=== PATIENT | male | born 1955 | race Two or more races ===

== ENCOUNTER 2024-09-26 07:22 | Emergency (ER) | payer MEDICARE, MEDICAID, SELFPAY ==
[2024-09-26 08:08] VITALS: BP 149/73; PULSE 81; RESP 16; TEMP 36.4; O2SAT 97
--- NOTE | 2024-09-26 08:18 | XR_ITS ---
Examination: CT cervical spine without contrast 2-D sagittal reconstructions 2-D coronal reconstructions 3-D reconstructions. Exam date and time:September 26, 2024 at 0911 hrs. Comparison October 24, 2021 Indications: Onset neck pain beginning one week ago no trauma CTDI:vol (mGy) 14.1 DLP: (mGycm) 305 Technique: Multiple 2 mm axial sections of the cervical spine have been obtained. The coronal and sagittal reconstructions have been obtained. 3-D reconstructions have been obtained. Low dose protocols were performed. One or more of the following dose reduction techniques were used; automated exposure control, adjustment of the mA and/or KV according to patient size, use of iterative reconstruction technique. Findings: Axial sections demonstrate intact base of the skull. C1 exhibit satisfactory relationship to the odontoid. No acute cervical vertebral body fracture seen. Alignment posterior spinous processes satisfactory. Grade 1 listhesis C3 on C4, C4 on C5 Moderate to advanced degenerative disc disease C3-C4, C4-C5, C5-C6, C6-C7 C3-C4 moderate right neural foraminal stenosis C5-C6 moderate left neural foraminal stenosis C6-C7 moderate left neural foraminal stenosis Impression: No acute cervical fracture. Cervical spinal stenosis as above Repeat MRI cervical spine follow-up would best assess full extent of acquired soft tissue spinal stenosis
--- NOTE | 2024-09-26 08:19 | EDNOTE_ITS ---
ED Neck Injury Pain RME/HPI General Chief Complaint: Neck Pain/Injury Stated Complaint: PAIN IN THE BACK OF THE NECK Time Seen by Provider: 09/26/24 08:18 Source: patient Arrival date/time: 09/26/24 07:22 69-year-old male with past medical history of hypertension, diabetes, CAD, and chronic neck pain presents emergency department complaining of neck pain that radiates down to both shoulders. Patient reports pain has been worse than normal for the last week and primary care provider if gabapentin and started him on methocarbamol. Patient denies any fever, chills, cough, shortness of breath, dizziness, numbness, extremity weakness, or any paresthesia. Mode of arrival: ambulatory Limitations: no limitations Related Data Home Medications ?Medication ?Instructions ?Recorded ?Confirmed lisinopril 40 mg tablet 40 mg PO QDAY #0 tabs 06/06/17 09/14/22 loratadine 10 mg tablet (Claritin) 10 mg PO QDAY #0 tabs 06/06/17 09/14/22 doxazosin 4 mg tablet 4 mg PO HS 12/27/20 09/14/22 pantoprazole 40 mg tablet,delayed 40 mg PO QDAY 12/27/20 09/14/22 release albuterol sulfate 90 mcg/actuation 1 puff inhalation DAILY PRN Dyspnea 10/25/21 09/14/22 aerosol inhaler atorvastatin 80 mg tablet 80 mg PO QDAY 10/25/21 09/14/22 diclofenac sodium 1 % topical gel 1 g topical BID 10/25/21 09/14/22 linagliptin 5 mg tablet (Tradjenta) 5 mg PO DAILY 10/25/21 09/14/22 magnesium oxide 250 mg PO BID 10/25/21 09/14/22 ticagrelor 90 mg tablet (Brilinta) 90 mg PO BID 10/25/21 09/14/22 aspirin 81 mg capsule 81 mg PO QDAY 09/14/22 09/14/22 chlorthalidone 25 mg tablet 25 mg PO QDAY 09/14/22 09/14/22 cholecalciferol (vitamin D3) 50 50 mcg PO QDAY 09/14/22 09/14/22 mcg (2,000 unit) tablet (Vitamin D3) empagliflozin 10 mg tablet 10 mg PO QAM 11/18/22 11/18/22 (Jardiance) gabapentin 100 mg capsule 100 mg PO TID 09/14/22 09/14/22 (Neurontin) Previous Rx's ?Medication ?Instructions ?Recorded amlodipine 10 mg tablet 5 mg (1/2 x 10 mg) PO QDAY #0 tabs 10/25/21 acetaminophen 300 mg-codeine 30 mg 1 tab PO Q6H PRN pain #28 tabs 09/17/22 tablet lidocaine 5 % topical patch 1 patch topical QDAY PRN pain #15 09/26/24 ea Allergies Allergy/AdvReac Type Severity Reaction Status Date / Time No Known Allergies Allergy Verified 09/26/24 07:23 Review of Systems Review of Systems Systems Reviewed: All systems reviewed, normal except as documented Constitutional Constitutional: Reports system reviewed and no additional complaints, except as documented, Denies body ache(s), Denies chills and Denies fever(s) Eyes Eyes: Reports system reviewed and no additional complaints, except as documented and Denies change in vision ENT Ears, Nose, Mouth, and Throat: Reports system reviewed and no additional complaints, except as documented, Denies disequilibrium, Denies dizziness, Reports neck pain, Denies sore throat and Denies vertigo Cardiovascular Cardiovascular: Reports system reviewed and no additional complaints, except as documented, Denies chest pain and Denies dyspnea Respiratory Respiratory: Reports system reviewed and no additional complaints, except as documented, Denies chest congestion, Denies cough and Denies dyspnea Gastrointestinal Gastrointestinal: Reports system reviewed and no additional complaints, except as documented, Denies abdominal pain, Denies nausea and Denies vomiting Musculoskeletal Musculoskeletal: Reports system reviewed and no additional complaints, except as documented, Denies abnormal gait, Denies arthralgias and Reports neck pain Integumentary/Breasts Skin/Breast: Reports system reviewed and no additional complaints, except as documented, Denies erythema, Denies rash and Denies wounds Neurologic Neurologic: Reports system reviewed and no additional complaints, except as documented, Denies abnormal gait, Denies disequilibrium, Denies dizziness and Denies vertigo Past Medical History Past Medical History NEUROLOGIC: Negative Neurological Disorders, Cerebrovascular Accident, Transient Ischemic Attacks (TIA), Dementia, Alzheimer's Disease, Parkinson's Disease, Brain Tumor, Meningitis, Seizures, Epilepsy, Multiple Sclerosis, Cerebral Palsy, Amyotrophic Lateral Sclerosis (ALS/Lili Gehrig's), Guillain-[place] Syndrome, Spina Bifida, Paralysis, Peripheral Neuropathy, Wong's Palsy, Subdural Hematoma, Migraine, Head Trauma, Spinal Cord Injury or Traumatic Brain Injury CARDIAC: Positive Hypercholesterolemia and Hypertension; Negative Cardiac Disorders, Myocardial Infarction, Cardiac Arrhythmia, Atrial Fibrillation, Angina, Heart Murmur, Coronary Artery Disease, Atherosclerotic Heart Disease, Peripheral Vascular Disease, Aneurysm, Congestive Heart Failure, Congenital Heart Disease, Valvular Heart Disease, Rheumatic Fever, Cardiomyopathy, Edema, Pericarditis, Cellulitis, Deep Vein Thrombosis, Hypotension or Varicose Veins RESPIRATORY: Negative Chronic Obstructive Pulmonary Disease (COPD), Asthma, Bronchitis, Emphysema, Pneumonia, Pulmonary Fibrosis, Cystic Fibrosis, Tuberculosis, Pulmonary Embolism, Pulmonary Edema or Sleep Apnea GASTROINTESTINAL: Positive Gastrointestinal Disorders and Obesity; Negative Cirrhosis, Pancreatitis, Celiac Disease, Gall Bladder Disease, Gastrointestinal Bleed, Esophageal Varices, Cruz's Esophagus, Colitis, Ulcerative Colitis, Diverticulitis, Diverticulosis, Ulcer, Irritable Bowel, Crohn's Disease, Obstructive Bowel, Hiatal Hernia, Hemorrhoids or Gastroesophageal Reflux Disease GENITOURINARY: Positive Renal Disease; Negative Genitourinary Disorders, Kidney Stones, Polycystic Kidney Disease, Neur ogenic Bladder, Inguinal Hernia, Dialysis or Benign Prostatic Hyperplasia REPRODUCTIVE: Negative Genital Herpes, Gonorrhea, Syphilis or Testicular Cancer MUSCULOSKELETAL: Positive Arthritis; Negative Musculoskeletal Disorders, Muscular Dystrophy, Myasthenia Gravis, Marfan's Syndrome, Rheumatoid Arthritis, Osteoporosis, Degenerative Disk Disease, Gout, Scoliosis, Carpal Tunnel Syndrome, Fibromyalgia, Fractures, Degenerative Joint Disease, Osteomyelitis or Poliovirus ENT: Positive Blind (left eye blind); Negative Cataracts, Glaucoma, Retinal Detachment, Macular Degeneration, Ear Infection, Deafness, Head Trauma or Eye Prosthesis ENDOCRINE: Positive Endocrine Disorders and Diabetes Mellitus Type 2; Negative Diabetes Mellitus Type 1, Hypoglycemia, Paco's Syndrome, [place]'s Disease, Hyperthyroidism, Hypothyroidism, Parathyroid Disease, Pituitary Disease, Systemic Lupus Erythematosus, Syndrome of Inappropriate Antidiuretic Hormone (SIADH), Adrenal Disease or Graves' Disease HEMATOLOGIC: Negative Blood Disorders, Anemia, Leukemia, Hemophilia, Sickle Cell Disease or Clotting Problems PSYCHO/SOCIAL: Negative Psychiatric Problems, Schizophrenia, Recreational Drug Use, Bipolar Disorder, Depression, Anxiety, Behavior Problems, Self-Mutilation, Attention Deficit Disorder, Attention Deficit Hyperactivity Disorder, Depression, Post Traumatic Stress Disorder or Eating Disorder OTHER HISTORY: Positive Hospitalization; Negative Autoimmune Disease, Down Syndrome, Autism, Developmental Delay, Shingles, Falls, Blood Transfusions, Blood Transfusion Reaction, Anesthesia Reactions, Organ Transplant, MRSA, VRSA, Clostridium Difficile, Cancer or Testicular Cancer Family History FAMILY HISTORY: Negative Family Psychiatric Problems, Family Respiratory Di sorders, Family Cardiac Disorders, Family Gastrointestinal Problems, Family Cancer, Family Surgery or Family Anesthesia Reaction (n/a) Surgical History SURGICAL: Positive Cardiac Catheterization (2 coronary stents); Negative Cardiac Surgery, Open Heart Surgery, Coronary Artery Bypass Graft, Valve Replacement, Vascular Surgery, Coronary Stent, Pacemaker, Angiogram, Auto Implanted Cardiovert Defib, Carotid Endarterectomy, Endocrine Surgery, Thyroidectomy, Ear Surgery, Tympanostomy Tube, Eye Surgery, Nose Surgery, Oral Surgery, Tonsillectomy, Adenoidectomy, Cochlear Implant, Corneal Transplant, Throat Surgery, Abdominal Surgery, Tracheostomy, Gastric Bypass Surgery, Gastrostomy, Bowel Surgery, Nephrectomy, Transurethral Resection, Joint Replacement, Amputation, Open Reduction Internal Fixation, Arthroscopy, Neurologic Surgery, Brain Shunt, Vasectomy or Organ Transplant Social History SMOKING STATUS: Never smoker SUBSTANCE USE: does not use ED Exam General Limitations: Present no limitations General appearance: Present alert and in no apparent distress Head Head exam: Present atraumatic Eye Eye exam: Present normal appearance, PERRL and EOMI ENT ENT exam: Present normal exam, normal oropharynx and mucous membranes moist Neck Neck exam: Present normal inspection, full ROM, trachea midline and other (Supple); Absent lymphadenopathy Chest Chest inspection: Present normal inspection and symmetric chest wall rise Respiratory Respiratory exam: Present normal lung sounds bilaterally Cardiovascular Cardiovascular exam: Present regular rate, normal rhythm and normal heart sounds Abdominal Exam Abdominal exam: Present soft and normal bowel sounds Extremities Exam Extremities exam: Present normal inspection and full ROM Back Exam Back exam: Present normal inspection and full ROM Neurological Exam Neurological exam: Present alert, oriented X3 and CN II-XII intact Psychiatric Psychiatric exam: Present normal affect and normal mood Skin Skin exam: Present warm, dry, intact and normal color Course Quality Measures none Orders Category Date Time Status CT cervical spine wo con Stat Exams 09/26/24 08:18 Completed CYCLObenzaPRINE [Flexeril] Med 09/26/24 08:19 Discontinued 5 mg PO X1 ONE Lidocaine 5% Patch Med 09/26/24 08:19 Discontinued 1 patch TOP X1 ONE Vital Signs Vital signs: Vital Signs Temperature 97.6 F 09/26/24 08:08 Pulse Rate 81 09/26/24 08:08 Respiratory Rate 16 09/26/24 08:08 Blood Pressure 149/73 H 09/26/24 08:08 Pulse Oximetry (%) 97 09/26/24 08:08 Oxygen Delivery Method Room Air 09/26/24 08:08 97% room air within normal limits Neck Pain MDM Narrative MDM Narrative:: 69-year-old male with past medical history of hypertension, diabetes, CAD, and chronic neck pain presents emergency department complaining of neck pain that radiates down to both shoulders. Patient reports pain has been worse than normal for the last week and primary care provider if gabapentin and started him on methocarbamol. Patient denies any fever, chills, cough, shortness of breath, dizziness, numbness, extremity weakness, or any paresthesia. Patient GCS 15 with steady gait and full active range of motion to neck. Patient appears nontoxic and hemodynamically stable. Patient reported improvement in pain after medication. CT cervical spine findings spinal stenosis. Patient discharged and instructed to follow-up with primary care provider and request referral physical therapy if symptoms persist. Instructed to return to emergency department for any worsening symptoms or as needed. Patient data External records reviewed:: [facility] previous records Clinical information provided by:: patient Social determinants that could affect healthcare access:: none Patient has the following chronic illnesses:: See chart How is presenting disease/condition affected by chronic disease/condition?: exacerbated by Evaluation data The following diagnostics were reviewed and interpreted by me:: radiology exam(s) Lab and/or radiology exams considered but not ordered:: Ordered Interpretation Summary: Interpreted by me Medications / Prescriptions Medications or Prescriptions considered but not ordered:: Ordered Medication administrations:: Medication Administration History Discontinued Medications Cyclobenzaprine HCl (Cyclobenzaprine 5 Mg Tablet) 5 mg PO X1 ONE Stop: 09/26/24 08:20 Last Admin: 09/26/24 08:53 Dose: Not Given Documented By: EF Non-Admin Reason: Cancelled by Provider Lidocaine (Lidocaine 5% 1 Patch) 1 patch TOP X1 ONE Stop: 09/26/24 08:20 Last Admin: 09/26/24 08:32 Dose: 1 patch Documented By: EF Given Consultations Consultation(s) initiated? (list below): No Diagnosis Neck Differential Diagnosis: disc disorder of cervical region, closed subluxation of cervical spine, fracture of cervical spine without lesion of spinal cord, cervical radiculopathy, vertebral artery dissection, torticollis, cervical spondylosis and strain of neck muscle Most likely diagnosis given after review of the tests above:: Neck and shoulder pain Spinal stenosis Admission Indicated Admission indicated?: not indicated Admission Request Was there a request for admission?: No Disposition Plan Disposition Plan: Discharge Discharge Attestation Discharge Attestation: The patient and all family members were given an opportunity to ask questions and understood the discharge instructions. Discharge instructions specifically effects, indications for sooner follow up or return to the emergency department, and the expected course of current diagnosis. Patient condition: Stable Discharge Plan Plan Patient Disposition: HOME (Self Care) Disposition Comment: Stable Prescriptions/Referrals Prescriptions/Med Rec: New lidocaine 5 % adhesive patch,medicated 1 patch topical QDAY PRN (Reason: pain) Qty: 15 0RF Rx Instructions: leave on most painful area for up to 12 hrs No Action lisinopril 40 MG tablet 40 mg PO QDAY Qty: 0 loratadine [Claritin] 10 MG tablet 10 mg PO QDAY Qty: 0 magnesium oxide 250 mg magnesium Tablet 250 mg PO BID Tradjenta 5 mg Tablet 5 mg PO DAILY Brilinta 90 mg Tablet 90 mg PO BID atorvastatin 80 mg tablet 80 mg PO QDAY albuterol sulfate 90 mcg/actuation HFA aerosol inhaler 1 puff INHALATION DAILY PRN (Reason: Dyspnea) diclofenac sodium 1 % gel 1 g TOPICAL BID amlodipine 10 mg tablet 5 mg PO QDAY Qty: 0 0RF pantoprazole 40 mg Tablet,Delayed Release (Dr/Ec) 40 mg PO QDAY doxazosin 4 mg tablet 4 mg PO HS Hold Instructions: f/u with PCP chlorthalidone 25 mg Tablet 25 mg PO QDAY aspirin 81 mg Capsule 81 mg PO QDAY gabapentin [Neurontin] 100 mg Capsule 100 mg PO TID cholecalciferol (vitamin D3) [Vitamin D3] 50 mcg (2,000 unit) Tablet 50 mcg PO QDAY Jardiance 10 mg Tablet 10 mg PO QAM acetaminophen-codeine 300-30 mg tablet 1 tab PO Q6H PRN (Reason: pain) Qty: 28 0RF Referrals: Marcell Zamorano PA-C [Primary Care Provider] - In 1 week Problem List Clinical Impression: Neck and shoulder pain, Cervical spinal stenosis Patient/Caregiver Discharge Instructions Education Materials: Anatomy of a Normal Spine, Back Basics: A Healthy Spine, ED Neck Pain Additional Instructions: Apply medication as prescribed. Follow-up with primary care provider in 24 to 40 hours and request referral to physical therapy or MRI if symptoms persist. Return to the emergency department for any worsening symptoms or as needed. Print Language: Malay Stand Alone Forms: Toña Award Info., Patient Portal Info Letter PA/LINK TRAINER MAINTENANCE WORKER Supervising Physician PA/LINK TRAINER MAINTENANCE WORKER Supervising Physician: Dr. Murray
[2024-09-26] MEDS: LIDOCAINE 5% 1 PATCH TOP (08:32)
== END 2024-09-26 10:03 | disposition home or self-care (01) ==
PROVIDERS: Emergency Provider Emergency Medicine; PCP Physician Assistant Medical
DX: M48.02 Spinal stenosis, cervical region (principal); M25.512 Pain in left shoulder; M25.511 Pain in right shoulder; E11.9 Type 2 diabetes mellitus without complications; I10 Essential (primary) hypertension; I25.10 Atherosclerotic heart disease of native coronary artery without angina pectoris
CPT/HCPCS: 72125; 99284

== ENCOUNTER → 2024-10-26 | Outpatient (CLI) | payer MEDICARE, MEDICAID, SELFPAY ==
[2024-10-26 08:43] LABS: Basophils % (Auto) 0 % (0-2.5); Eosinophils # (Auto) 0.1 Thou/mm3 (0.0-0.5); Eosinophils % (Auto) 2 % (0-10); Hemoglobin 15.6 g/dL (13.5-16.0); Immature Granulocytes % (Auto) 0 % (0-0); Immature Granulocytes Auto 0.03 Thou/mm3 (0.00-0.00); Lymphocytes # (Auto) 1.2 Thou/mm3 (1.0-4.8); Lymphocytes % (Auto) 13 % (10-50); Mean Corpuscular HGB Conc 33.2 g/dl (31.0-37.0); Mean Corpuscular Hemoglobin 31.1 pg (25.0-35.0); Mean Corpuscular Volume 94 fL (80-100); Monocytes # (Auto) 0.6 Thou/mm3 (0.0-0.8); Monocytes % (Auto) 7 % (0-12); Neutrophils # (Auto) 6.8 Thou/mm3 (1.8-7.7); Neutrophils % (Auto) 78 % (37-80); Nucleated Red Blood Cell % 0 /100 WBC (0); Platelet Count 169 Thou/mm3 (140-440); RDW Standard Deviation 45.7 fL (35.1-43.9); Red Blood Count 5.02 Miln/mm3 (4.50-5.90); White Blood Count 8.8 Thou/mm3 (3.8-10.6)
[2024-10-26 08:48] LABS: Partial Thromboplastin Time 30.4 Seconds (22.0-36.0); Prothrombin Time 11.4 Seconds (9.0-12.2)
[2024-10-26 09:05] LABS: Anion Gap 7 (7-16); BUN/Creatinine Ratio 24 Ratio (12-20); Blood Urea Nitrogen 33 mg/dL (9-23); Calcium 10.4 mg/dL (8.3-10.6); Carbon Dioxide 26.9 mMol/L (20.0-31.0); Chloride 103 mMol/L (98-107); Creatinine (Component) 1.4 mg/dL (0.6-1.3); Glucose 149 mg/dL (74-106); Osmolality,Calculated 284 (275-295); Potassium 4.9 mMol/L (3.4-5.1); Sodium 137 mMol/L (136-145); eGFR 54 See Note
== END | disposition home or self-care (01) ==
LOC: COPL 07:53
PROVIDERS: Referring Provider Internal Medicine; Visit Provider Internal Medicine
DX: I25.10 Atherosclerotic heart disease of native coronary artery without angina pectoris (principal); I48.91 Unspecified atrial fibrillation
CPT/HCPCS: 36415; 80048; 85025; 85610; 85730

== ENCOUNTER → 2024-12-07 | Outpatient (CLI) | payer MEDICARE, MEDICAID, SELFPAY ==
[2024-12-07 09:45] LABS: Misc Send Out* See Sep Rpt
[2024-12-07 09:58] LABS: Collection Type, Urine Clean Catch; Squamous Epithelial Cell,Urine 0 /hpf (0-5); WBC,Urine 0 /hpf (0-5)
[2024-12-07 10:27] LABS: Basophils % (Auto) 0 % (0-2.5); Eosinophils # (Auto) 0.1 Thou/mm3 (0.0-0.5); Eosinophils % (Auto) 1 % (0-10); Hematocrit 46.1 % (41.0-53.0); Hemoglobin 15.7 g/dL (13.5-16.0); Immature Granulocytes % (Auto) 1 % (0-0); Immature Granulocytes Auto 0.04 Thou/mm3 (0.00-0.00); Immature Reticulocyte Fraction 12.1 % (2.3-13.4); Lymphocytes % (Auto) 12 % (10-50); Mean Corpuscular HGB Conc 34.1 g/dl (31.0-37.0); Mean Corpuscular Volume 91 fL (80-100); Monocytes # (Auto) 0.6 Thou/mm3 (0.0-0.8); Monocytes % (Auto) 7 % (0-12); Neutrophils # (Auto) 6.6 Thou/mm3 (1.8-7.7); Neutrophils % (Auto) 79 % (37-80); Nucleated Red Blood Cell % 0 /100 WBC (0); Platelet Count 178 Thou/mm3 (140-440); RDW Standard Deviation 45.7 fL (35.1-43.9); Red Blood Count 5.06 Miln/mm3 (4.50-5.90); Reticulocyte % (Auto) 1.5 % (0.5-1.5); Reticulocyte Absolute Auto 75.4 Biln/L (25.0-75.0); Reticulocyte Hgb Content 35.6 pg (28.0-35.0); White Blood Count 8.4 Thou/mm3 (3.8-10.6)
[2024-12-07 10:28] LABS: Parathyroid Hormone Intact 115.2 pg/ml (18.5-88.0)
[2024-12-07 10:29] LABS: Creatinine,Random Urine 108 mg/dL (30-125); Protein Total, Random Urine 11 mg/dL (1-14)
[2024-12-07 10:32] LABS: Alanine Aminotransferase 42 U/L (10-49); Albumin, Serum 4.5 gm/dL (3.4-4.8); Anion Gap 9 (7-16); Aspartate Amino Transferase 35 U/L (0-34); BUN/Creatinine Ratio 24 Ratio (12-20); Bilirubin,Total 0.6 mg/dL (0.3-1.2); Blood Urea Nitrogen 33 mg/dL (9-23); Calcium 9.2 mg/dL (8.3-10.6); Calcium (Corrected) 9.2 mg/dL (8.5-10.1); Carbon Dioxide 25.6 mMol/L (20.0-31.0); Chloride 97 mMol/L (98-107); Creatinine (Component) 1.4 mg/dL (0.6-1.3); Glucose 129 mg/dL (74-106); Magnesium 2.3 mg/dL (1.6-2.6); Osmolality,Calculated 273 (275-295); Phosphorous 3.5 mg/dL (2.4-5.1); Potassium 4.4 mMol/L (3.4-5.1); Sodium 132 mMol/L (136-145); Total Protein 7.2 gm/dL (5.7-8.2); Uric Acid 7.3 mg/dL (3.7-9.2); eGFR 54 See Note
[2024-12-07 10:40] LABS: Folate > 24.00 ng/mL (>5.38); Vitamin B12 764 pg/mL (211-911); Vitamin D 25 Hydroxy Total 46.3 ng/mL (7.3-40.2)
[2024-12-07 10:51] LABS: Ferritin 99 ng/mL (10.5-307.3); Iron 78 mcg/dL (65-175); Percent Iron Saturation 23 % (20-55); Total Iron Binding Capacity 328 mcg/dL (250-425); Unsaturated Iron Binding 250 (225-295)
[2024-12-07 11:00] LABS: Bilirubin,Urine Negative (Negative); Blood,Urine Negative (Negative); Clarity,Urine Clear (Clear/Hazy); Color,Urine Lt-Yellow (Lt Yel-Yel); Glucose, Urine 4+ (Negative); Ketones,Urine Negative (Negative); Leukocyte Esterase,Urine Negative (Negative); Nitrite,Urine Negative (Negative); Protein,Urine Negative (Neg - Trace); RBC,Urine 1 /hpf (0-3); Specific Gravity,Urine 1.026 (1.001-1.035); Urobilinogen,Urine Negative mg/dL (0.0-1.0)
== END | disposition home or self-care (01) ==
LOC: COPL 09:20
PROVIDERS: PCP Nurse Practitioner; Referring Provider Internal Medicine Nephrology; Visit Provider Internal Medicine Nephrology
DX: I12.9 Hypertensive chronic kidney disease with stage 1 through stage 4 chronic kidney disease, or unspecified chronic kidney disease (principal); E11.22 Type 2 diabetes mellitus with diabetic chronic kidney disease; N18.31 Chronic kidney disease, stage 3a; D63.1 Anemia in chronic kidney disease; E87.5 Hyperkalemia; E78.5 Hyperlipidemia, unspecified; M10.9 Gout, unspecified; N39.0 Urinary tract infection, site not specified; D50.9 Iron deficiency anemia, unspecified
CPT/HCPCS: 36415; 80069; 81001; 82247; 82306; 82570; 82607; 82728; 82746; 83540; 83550; 83735; 83970; 84155; 84156; 84450; 84460; 84550; 85025; 85046; 87086

== ENCOUNTER → 2025-03-15 | Outpatient (CLI) | payer MEDICARE, MEDICAID, SELFPAY ==
[2025-03-15 14:53] LABS: Misc Send Out* See Sep Rpt
[2025-03-15 15:27] LABS: Collection Type, Urine Clean Catch; Squamous Epithelial Cell,Urine 0 /hpf (0-5); WBC,Urine 0 /hpf (0-5)
[2025-03-15 15:47] LABS: Basophils % (Auto) 0 % (0-2.5); Eosinophils % (Auto) 1 % (0-10); Hematocrit 38.4 % (41.0-53.0); Hemoglobin 13.8 g/dL (13.5-16.0); Immature Granulocytes % (Auto) 0 % (0-0); Immature Granulocytes Auto 0.01 Thou/mm3 (0.00-0.00); Immature Reticulocyte Fraction 10.5 % (2.3-13.4); Lymphocytes # (Auto) 0.9 Thou/mm3 (1.0-4.8); Lymphocytes % (Auto) 13 % (10-50); Mean Corpuscular HGB Conc 35.9 g/dl (31.0-37.0); Mean Corpuscular Hemoglobin 31.8 pg (25.0-35.0); Mean Corpuscular Volume 89 fL (80-100); Monocytes # (Auto) 0.8 Thou/mm3 (0.0-0.8); Monocytes % (Auto) 12 % (0-12); Neutrophils # (Auto) 4.9 Thou/mm3 (1.8-7.7); Neutrophils % (Auto) 74 % (37-80); Nucleated Red Blood Cell % 0 /100 WBC (0); Platelet Count 155 Thou/mm3 (140-440); RDW Standard Deviation 44.1 fL (35.1-43.9); Red Blood Count 4.34 Miln/mm3 (4.50-5.90); Reticulocyte % (Auto) 1.3 % (0.5-1.5); Reticulocyte Absolute Auto 56.9 Biln/L (25.0-75.0); Reticulocyte Hgb Content 36.1 pg (28.0-35.0); White Blood Count 6.5 Thou/mm3 (3.8-10.6)
[2025-03-15 15:50] LABS: Bilirubin,Urine Negative (Negative); Blood,Urine Negative (Negative); Clarity,Urine Clear (Clear/Hazy); Color,Urine Colorless (Lt Yel-Yel); Culture Indicated,Urine Not Indicated; Glucose, Urine Negative (Negative); Ketones,Urine Negative (Negative); Leukocyte Esterase,Urine Negative (Negative); Nitrite,Urine Negative (Negative); PH,Urine 6.5 (5.0-7.0); Protein,Urine Negative (Neg - Trace); RBC,Urine < 1 /hpf (0-3); Specific Gravity,Urine 1.009 (1.001-1.035); Urobilinogen,Urine Negative mg/dL (0.0-1.0)
[2025-03-15 15:56] LABS: Creatinine,Random Urine 35 mg/dL (30-125); Protein Total, Random Urine < 6 mg/dL (1-14); Sodium,Urine Random 55.3 mMol/L (20.0-110.0)
[2025-03-15 15:59] LABS: Parathyroid Hormone Intact 101.1 pg/ml (18.5-88.0)
[2025-03-15 16:05] LABS: Albumin, Serum 4.3 gm/dL (3.4-4.8); Anion Gap 9 (7-16); BUN/Creatinine Ratio 20 Ratio (12-20); Blood Urea Nitrogen 24 mg/dL (9-23); Calcium 8.4 mg/dL (8.3-10.6); Calcium (Corrected) 8.4 mg/dL (8.5-10.1); Carbon Dioxide 25.9 mMol/L (20.0-31.0); Chloride 96 mMol/L (98-107); Creatinine (Component) 1.2 mg/dL (0.6-1.3); Glucose 121 mg/dL (74-106); Magnesium 1.6 mg/dL (1.6-2.6); Osmolality,Calculated 267 (275-295); Phosphorous 2.4 mg/dL (2.4-5.1); Potassium 3.4 mMol/L (3.4-5.1); Sodium 131 mMol/L (136-145); Uric Acid 8.3 mg/dL (3.7-9.2); eGFR > 60 See Note
[2025-03-15 16:06] LABS: Ferritin 163 ng/mL (10.5-307.3); Folate 16.88 ng/mL (>5.38); Iron 49 mcg/dL (65-175); Total Iron Binding Capacity 289 mcg/dL (250-425); Vitamin B12 508 pg/mL (211-911); Vitamin D 25 Hydroxy Total 51.8 ng/mL (7.3-40.2)
[2025-03-23 07:01] LABS: Osmolality, Serum* 267 mOsm/kg (278-305); Osmolality, Urine* 161 mOsm/kg (50-1200)
== END | disposition home or self-care (01) ==
LOC: COPL 14:15
PROVIDERS: PCP Nurse Practitioner Family; Referring Provider Internal Medicine Nephrology; Visit Provider Internal Medicine Nephrology
DX: I12.9 Hypertensive chronic kidney disease with stage 1 through stage 4 chronic kidney disease, or unspecified chronic kidney disease (principal); E11.22 Type 2 diabetes mellitus with diabetic chronic kidney disease; N18.31 Chronic kidney disease, stage 3a; E87.5 Hyperkalemia; E78.5 Hyperlipidemia, unspecified; M10.9 Gout, unspecified; E55.9 Vitamin D deficiency, unspecified; N39.0 Urinary tract infection, site not specified
CPT/HCPCS: 36415; 80069; 81001; 82306; 82570; 82607; 82728; 82746; 83540; 83550; 83735; 83930; 83935; 83970; 84156; 84300; 84550; 85025; 85046

== ENCOUNTER 2025-05-18 09:50 | Day surgery (SDC) | payer MEDICARE, MEDICAID, SELFPAY ==
--- NOTE | 2025-05-14 06:42 | EKG_ITS ---
[facility] Test Date: 2025-05-14 Pat Name: PALOMA COX Department: Room: - Gender: Male Camp Counselor: ROSAURA : 1955 Requested By: Adi Espino Order Number: [id number] Reading MD: Adi Espino Measurements Intervals [place] Rate: 64 P: 38 MD: 151 QRS: -1 QRSD: 83 T: 28 QT: 372 QTc: 385 Interpretive Statements SINUS RHYTHM Compared to ECG 09/14/2022 11:33:38 Myocardial infarct finding no longer present /[id number]
[2025-05-14 10:08] VITALS: BMI 31.7
[2025-05-14 10:52] LABS: Collection Type, Urine Clean Catch; Squamous Epithelial Cell,Urine 0 /hpf (0-5)
[2025-05-14 12:00] LABS: Basophils # (Auto) 0.0 Thou/mm3 (0.0-0.2); Basophils % (Auto) 1 % (0-2.5); Eosinophils # (Auto) 0.2 Thou/mm3 (0.0-0.5); Eosinophils % (Auto) 2 % (0-10); Hematocrit 41.8 % (41.0-53.0); Hemoglobin 14.3 g/dL (13.5-16.0); Immature Granulocytes Auto 0.02 Thou/mm3 (0.00-0.00); Lymphocytes # (Auto) 1.4 Thou/mm3 (1.0-4.8); Lymphocytes % (Auto) 17 % (10-50); Mean Corpuscular HGB Conc 34.2 g/dl (31.0-37.0); Mean Corpuscular Hemoglobin 32.5 pg (25.0-35.0); Mean Corpuscular Volume 95 fL (80-100); Monocytes # (Auto) 0.7 Thou/mm3 (0.0-0.8); Monocytes % (Auto) 9 % (0-12); Neutrophils # (Auto) 5.9 Thou/mm3 (1.8-7.7); Neutrophils % (Auto) 71 % (37-80); Nucleated Red Blood Cell # 0.00 Thou/mm3 (0.00-0.00); Nucleated Red Blood Cell % 0 /100 WBC (0); Platelet Count 158 Thou/mm3 (140-440); RDW Standard Deviation 46.9 fL (35.1-43.9); Red Blood Count 4.40 Miln/mm3 (4.50-5.90); White Blood Count 8.3 Thou/mm3 (3.8-10.6)
[2025-05-14 12:09] LABS: Bacteria,Urine Rare; Bilirubin,Urine Negative (Negative); Blood,Urine Negative (Negative); Clarity,Urine Clear (Clear/Hazy); Color,Urine Lt-Yellow (Lt Yel-Yel); Glucose, Urine 1+ (Negative); Ketones,Urine Negative (Negative); Leukocyte Esterase,Urine Negative (Negative); Nitrite,Urine Negative (Negative); PH,Urine 5.5 (5.0-7.0); Protein,Urine Negative (Neg - Trace); RBC,Urine 3 /hpf (0-3); Specific Gravity,Urine 1.025 (1.001-1.035); Urobilinogen,Urine Negative mg/dL (0.0-1.0); WBC,Urine 1 /hpf (0-5)
[2025-05-14 12:22] LABS: Alanine Aminotransferase 47 U/L (10-49); Albumin, Serum 4.5 gm/dL (3.4-4.8); Albumin/Globulin Ratio 1.6 (1.2-2.2); Alkaline Phosphatase 110 U/L (46-116); Anion Gap 12 (7-16); Aspartate Amino Transferase 29 U/L (0-34); BUN/Creatinine Ratio 24 Ratio (12-20); Bilirubin,Total 0.6 mg/dL (0.3-1.2); Blood Urea Nitrogen 29 mg/dL (9-23); Calcium 9.2 mg/dL (8.3-10.6); Calcium (Corrected) 9.2 mg/dL (8.5-10.1); Carbon Dioxide 24.0 mMol/L (20.0-31.0); Chloride 102 mMol/L (98-107); Creatinine (Component) 1.2 mg/dL (0.6-1.3); Estimated Creatinine Clearance 44.9 mL/min (>60); Globulin 2.9 gm/dL (2.3-3.5); Glucose 180 mg/dL (74-106); Osmolality,Calculated 286 (275-295); Potassium 4.4 mMol/L (3.4-5.1); Sodium 138 mMol/L (136-145); Total Protein 7.4 gm/dL (5.7-8.2); eGFR > 60 See Note
--- NOTE | 2025-05-17 15:16 | SUR.PREOP ---
Pt notified to come in tomorrow at 1000.
[2025-05-18] VITALS (8 sets, daily range): BP systolic 110–155; BP diastolic 61–82; PULSE 62–81; RESP 16–20; TEMP 36.5–37; O2SAT 95–100; BMI 21.7
--- NOTE | 2025-05-18 07:15 | ESHP_ITS ---
RE: PALOMA COX : 1955 DATE OF ADMISSION: 05/17/2025 HISTORY OF PRESENT ILLNESS: A 70-year-old gentleman who was referred to me with a history of elevated PSA of 5.4, nocturia 3-4 times, urinary flow is fair. No history of gross hematuria or burning. PAST SURGICAL HISTORY: Previous surgery two, hernia operations and stent in his heart. PAST MEDICAL HISTORY: He has a history of diabetes mellitus, history of hypertension. SOCIAL HISTORY: He has no children. ALLERGIES: NONE KNOWN. HOME MEDICATIONS: 1. Lisinopril. 2. Claritin. 3. Norvasc. 4. Tradjenta. 5. Statin medication. 6. Gabapentin. 7. Meclizine. PHYSICAL EXAMINATION: HEENT: Normal. NECK: Supple. LUNGS: Clear. CARDIOVASCULAR: Heart sounds are normal. ABDOMEN: Soft without any organomegaly. No guarding. No rigidity. GENITOURINARY: Phallus is normal. Testicle are down in scrotum. RECTAL: Reveals moderately enlarged prostate with mild firmness. IMPRESSION: 1. Elevated PSA. 2. Prostatism. 3. Nocturia 3-4 times. 4. Diabetes mellitus. 5. Hypertension. PLAN: Cystoscopy, transrectal prostatic ultrasound with ultrasound-guided prostatic needle biopsy. Plan, procedure, risks and complications have been discussed with the patient. The patient has understood them and agreed to proceed. DT: 16:59:53 TT: 17:36:00 Ref: [id number] - TID: [id number]
--- NOTE | 2025-05-18 07:43 | XR_ITS ---
Examination: Transrectal prostate sonography Date and time: May 18, 2025 1125 hours INDICATIONS: Prostatic biopsies by the physician in the OR today, ultrasound guidance TECHNIQUE AND FINDINGS: Transrectal sonographic images prostate obtained for prostate biopsies Prostate volume 30.53 cc IMPRESSION: Transrectal sonographic images prostate obtained for prostate biopsies
--- NOTE | 2025-05-18 11:48 | SUR.PHASEII ---
pt received from OR in recovery bay 2. pt asleep but responds to voice, breathing unlabored on oxymask 4l. v/s stable. report received from Kiara TOWNSEND and Regla COVINGTON.
--- NOTE | 2025-05-18 12:57 | SUR.PHASEII ---
1226: pt awake, alert, able to follow commands, breathing unlabored, report from Leno COVINGTON 1230: pt able to urinate without difficulty 1235: pt able to tolerate oral fluids without difficulty swallowing or n/v 1257: Discharge instructions given with brother Mayito present using in house hat band attacher Zaida, all questions answered, pt and brother verbalize understanding of discharge instructions, pt able to dress self and ambulate with steady gait, pt discharged via wheelchair with all belongings and copies of discharge paperwork.
--- NOTE | 2025-05-18 17:09 | ESOP_ITS ---
RE: PALOMA COX : 1955 DATE OF OPERATION: 05/18/2025 PREOPERATIVE DIAGNOSES: Elevated PSA, prostatism and prostatic obstruction. POSTOPERATIVE DIAGNOSES: Elevated PSA, prostatism and prostatic obstruction. PROCEDURE PERFORMED: Cystoscopy and transrectal prostatic ultrasound with ultrasound-guided prostatic needle biopsy. ANESTHESIA: Monitored anesthesia by Dr. Ayoub. INDICATION: The patient is a 70-year-old gentleman with elevated PSA of 5.4. He has nocturia 3-4 times with slowing urinary stream. Rectally, he has a moderately enlarged prostate with some firmness. He is now scheduled to have cystoscopy, transrectal prostatic ultrasound with ultrasound-guided prostatic needle biopsy. Planned procedure, risks and complications have been discussed with the patient. The patient understood and agreed to proceed. DESCRIPTION OF PROCEDURE: After the patient was brought to the operating table under adequate monitored anesthesia by Dr. Ayoub, he was placed in dorsal lithotomy position. Parts were prepped and draped in the usual fashion. Cystoscopy was then carried out, which revealed adequate urethral meatus, normal-appearing urethra. Prostatic urethra is [id number] enlarged, bilobed. Residual urine is about 2 ounces, yellow and clear. There are no intravesical stones or tumors. Ureteral orifice was found to be normal in position and appearance. Scope was withdrawn. Urethra was dilated. The patient was then turned in the left lateral position. Transrectal prostatic ultrasound was carried out. Biopsies were obtained from both lobes using ultrasound guidance. Prostatic volume was measured at 35 mL. The patient tolerated the entire procedure well and left the room in good condition. PLAN: We will await for the biopsy report. DT: 12:13:19 TT: 17:07:00 Ref: [id number] - TID: [id number]
== END 2025-05-18 12:57 | disposition home or self-care (01) ==
PROVIDERS: Anesthesiology; PCP Family Medicine; Referring Provider Surgery; Visit Provider Surgery
PROC: 0TJB8ZZ Inspection of Bladder, Via Natural or Artificial Opening Endoscopic (ICD-10-PCS; CPT 52000; principal; 2025-05-18 12:00)
PROC: (CPT 55700; 2025-05-18 12:00)
DX: N40.1 Benign prostatic hyperplasia with lower urinary tract symptoms (principal); I10 Essential (primary) hypertension; E11.9 Type 2 diabetes mellitus without complications; Z95.5 Presence of coronary angioplasty implant and graft; Z01.810 Encounter for preprocedural cardiovascular examination; N42.32 Atypical small acinar proliferation of prostate
CPT/HCPCS: 52281; 55700; 36415; 76942; 80053; 81001; 85025; 87086; 93005; A4217; A4649; J0694; J2704; J3010; J3490